=== PATIENT | female | born 1950 | race Caucasian/White ===

== ENCOUNTER → 2016-08-08 | Outpatient (CLI) | payer OTHER | LOC: BHLMT 14:45 | PROVIDERS: ATTEND Internal Medicine Interventional Cardiology | DX: I72.9 Aneurysm of unspecified site (principal) | CPT/HCPCS: 93306-PO ==

== ENCOUNTER → 2017-01-17 | Outpatient (CLI) | payer OTHER | LOC: FIMAGING 09:14 | PROVIDERS: ATTEND Physician Assistant | DX: M22.42 Chondromalacia patellae, left knee (principal); M23.307 Other meniscus derangements, unspecified meniscus, left knee ==

== ENCOUNTER → 2017-04-17 | Outpatient (CLI) | payer OTHER | LOC: FIMAGING 09:14 | PROVIDERS: ATTEND Internal Medicine | DX: Z12.31 Encounter for screening mammogram for malignant neoplasm of breast (principal) | CPT/HCPCS: G0202 ==

== ENCOUNTER → 2017-06-17 | Outpatient (CLI) | payer OTHER | LOC: FIMAGING 14:57 | PROVIDERS: ATTEND Internal Medicine | DX: Z13.820 Encounter for screening for osteoporosis (principal); M85.80 Other specified disorders of bone density and structure, unspecified site ==

== ENCOUNTER → 2017-08-21 | Outpatient (CLI) | payer OTHER ==
[~2017-08-21] MED LIST: IOPAMIDOL (ISOVUE 370) 100 ML BTL IV ONE
== END ==
LOC: FIMAGING 11:43
PROVIDERS: ATTEND Internal Medicine Interventional Cardiology
DX: I71.2 Thoracic aortic aneurysm, without rupture (principal); I48.91 Unspecified atrial fibrillation; I65.29 Occlusion and stenosis of unspecified carotid artery
CPT/HCPCS: 75574; Q9967

== ENCOUNTER → 2017-08-28 | Outpatient (CLI) | payer OTHER | LOC: BHFA 14:45 | PROVIDERS: ATTEND Internal Medicine Cardiovascular Disease | DX: I65.29 Occlusion and stenosis of unspecified carotid artery (principal) ==

== ENCOUNTER → 2018-04-21 | Outpatient (CLI) | payer OTHER | LOC: FIMAGING 11:19 | PROVIDERS: ATTEND Internal Medicine | DX: Z12.31 Encounter for screening mammogram for malignant neoplasm of breast (principal) ==